=== PATIENT | female | born 1965 | race African-American/Black ===

== ENCOUNTER 2017-08-06 10:54 | Emergency (ER) | payer MEDICAID ==
[~2017-08-06] VITALS: Ht 160 cm; Wt 141.0 kg
[~2017-08-06 10:54] MED LIST: ACET-2178 PO
[2017-08-06] MEDS ORDERED: ONDANSETRON HCL 4MG/2ML VIAL IV STA (18:04)
[2017-08-06] MEDS ORDERED: KETOROLAC 30MG/ML VIAL IV STA (18:04)
[2017-08-06] MEDS ORDERED: SODIUM CHLORIDE 0.9% 1,000 ML IV ONE (18:04)
[2017-08-06 18:35] LABS: BASOPHILS % 0.6 % (0.0-2.0); EOSINOPHILS % 1.6 % (0.0-5.0); HEMATOCRIT. 37.7 % (36.0-48.0); HEMOGLOBIN. 12.4 g/dL (12.0-16.0); LYMPHOCYTES % 42.5 % (20.0-50.0); MEAN CORPUSCULAR HEMOGLOBIN 29.4 pg (28.0-32.0); MEAN CORPUSCULAR VOLUME 89.6 fL (81.0-99.0); MEAN PLATELET VOLUME 9.1 fl (7.4-10.4); MONOCYTES % 6.3 % (2.0-8.0); PLATELET 232 x1000/uL (130-400); RED CELL DISTRIBUTION WIDTH 13.3 % (11.6-14.6)
[2017-08-06 18:36] LABS: CHLORIDE 107 mEq/L (98-107)
[2017-08-06 18:42] LABS: HCG SCREEN NEGATIVE
[2017-08-06 18:44] LABS: CARBON DIOXIDE 31 mEq/L (21-32)
[2017-08-06 18:51] LABS: PROTHROMBIN TIME 10.3 sec (9.4-11.6)
[2017-08-06 19:06] VITALS: BP 123/79
== END 2017-08-06 19:07 | disposition home or self-care (01) ==
LOC: ER 15:17
DX: L03.213 Periorbital cellulitis (principal); Z87.440 Personal history of urinary (tract) infections
CPT/HCPCS: 36415; 80053; 83690; 84703; 85025; 85610; 99284; J7030